=== PATIENT | female | born 1965 | race Two or more races ===

== ENCOUNTER 2021-08-07 10:29 | Emergency (ER) | payer MEDICARE ==
[~2021-08-07] VITALS: Ht 160 cm; Wt 168.0 kg
[2021-08-07 10:38] VITALS: BP 174/80
[2021-08-07] MEDS ORDERED: NAPR-514 PO (10:44)
[2021-08-07] MEDS ORDERED: HYDR-2145 PO (10:44)
[2021-08-07] MEDS ORDERED: ATOR20TA58 PO (10:44)
[2021-08-07] MEDS ORDERED: LIDOCAINE (700MG/PATCH) PATCH. TD ONE (11:15)
[2021-08-07] MEDS ORDERED: KETOROLAC 30 MG/ML VIAL. IM ONE (11:15)
[2021-08-07] MEDS ORDERED: ORPHENADRINE CITRATE 60 MG/2 ML VIAL. IM ONE (11:15)
[2021-08-07] MEDS ORDERED: ORPH100T PO (11:34)
--- NOTE | 2021-08-07 11:34 | PHYS DOC ---
Past Medical History Additional Past Medical Histor: edema; obesity; Past Surgical History: Smoking Status: Current Every Day Smoker Alcohol Use: Rarely General Adult EDM: Chief Complaint: BACK PAIN OR INJURY HPI: HPI: Patient is a 56 year old female who presents with 5-day history of low back pain. Patient states that she did not have any inciting event or other injury. She reports her pain is mostly on the left side low back, radiating to mid leg on the left side. Pain is exacerbated with the movement from a sitting position to standing. Patient reports she has been told in the past that she may have sciatica. She sees primary care with [facility], who have prescribed naproxen for her pain. Patient denies bowel or bladder incontinence, focal weakness, difficulty ambulating. Review of Systems: Review of Systems: ROS negative or noncontributory except as mentioned in HPI. Heart Score: C/O Chest Pain: No Current Medications: Current Medications Medications (Trade) Dose Ordered Sig/Kelly Start Time Stop Time Status Last Admin Dose Admin Ketorolac Tromethamine (Toradol 30mg Vial) 30 mg 1X ONCE 08/07/21 11:15 08/07/21 11:25 DC Lidocaine (Lidoderm) 1 patch 1X ONCE 08/07/21 11:15 08/07/21 11:25 DC Orphenadrine Citrate (Norflex) 60 mg 1X ONCE 08/07/21 11:15 08/07/21 11:25 DC Allergies: Allergies: Allergies Coded Allergies Type Severity Reaction Last Updated Verified No Known Drug Allergies 08/07/21 No Physical Exam: PE: Constitutional: Morbidly obese, no acute distress, non-toxic appearance. HENT: Normocephalic, atraumatic, bilateral external ears normal. Eyes: EOMI, conjunctiva normal, no discharge. Neck: Normal range of motion, no stridor. Skin: Warm, dry, no erythema, no rash. Back: No step-off, no midline tenderness, no paraspinal muscle spasm appreciated, though limited by significant adipose tissue. Extremities: No tenderness, no cyanosis, no clubbing, ROM intact. Neurologic: Alert and oriented x4, normal motor function, normal sensory function, no focal deficits noted. Current Patient Data: Vital Signs: Vital Signs Date Time Temp Pulse Resp B/P (MAP) Pulse Ox O2 Delivery O2 Flow Rate FiO2 08/07/21 10:38 98.3 66 20 174/80 (111) 98 Room Air 98.3 Course & Med Decision Making: Course & Med Decision Making Pertinent Labs and Imaging studies reviewed. (See chart for details) On reevaluation, patient states her pain is improved after administration of Toradol and Norflex and lidocaine patch. Patient was advised to follow-up with primary care or pain management regarding any persistent or chronic pain. Return precautions were provided. Patient understands and is agreeable to discharge plan. Dragon Disclaimer: Dragon Disclaimer: This electronic medical record was generated, in whole or in part, using a voice recognition dictation system. Departure Departure Impression: Primary Impression: Low back pain Qualified Codes: M54.42 - Lumbago with sciatica, left side Disposition: HOME / SELF CARE / HOMELESS Condition: IMPROVED Referrals: UNKNOWN PCP NAME (PCP) ARABELLA TOMPKINS MD Patient Instructions: Back Pain, Adult, [id number] Additional Instructions: EMERGENCY DEPARTMENT GENERAL DISCHARGE INSTRUCTIONS Thank you for coming to [facility] (ED) today and trusting us with you care. We trust that you had a positive experience in our Emergency Department. If you wish to speak to the department management, you may call the director at . YOUR FOLLOW UP INSTRUCTIONS ARE FOLLOWS: 1. Follow up with your primary care doctor. If you do not have a primary doctor, please ask for a resource list of physicians or clinics that may be able to assist you with follow up care. 2. The emergency provider has interpreted your imaging studies, if any were ordered. The radiology ventilator specialist also reviewed them. If there is a change in the findings, you will be notified in 48 hours when at all possible. 3. If a lab test or culture has been done, your results will be reviewed and you will be notified if you need a change in treatment. 4. Follow instructions verbalized to you and refer to the printouts if needed. ADDITIONAL INSTRUCTIONS AND INFORMATION: 1. Your care today has been supervised by a physician who is specially trained in emergency care. Many problems require more than one evaluation for a complete diagnosis and treatment. We recommend that you schedule your follow up appointment as recommended to ensure complete treatment of you illness or injury. If you are unable to obtain follow up care and continue to have a problem, or if your condition worsens, we recommend that you return to the ED. 2. We are not able to safely determine your condition over the phone nor are we able to give sound medical advice over the phone. For these safety reasons, if you call for medical advice we will ask you to come to the ED for further evaluation. 3. If you have any questions regarding these discharge instructions please call the ED at . SAFETY INFORMATION: In the interest of safety, wellness, and injury prevention; we encourage you to wear your seat belt, if you smoke; quite smoking, and we encourage family to use a protective helmet for bicycling and other sporting events that present an increased risk for head injury. IF YOUR SYMPTOMS WORSEN OR NEW SYMPTOMS DEVELOP, OR YOU HAVE CONCERNS ABOUT YOUR CONDITION; OR IF YOUR CONDITION WORSENS WHILE YOU ARE WAITING FOR YOUR FOLLOW UP APPOINTMENT; EITHER CONTACT YOUR PRIMARY CARE DOCTOR, THE PHYSICIAN WHOSE NAME AND NUMBER YOU WERE GIVEN, OR RETURN TO THE ED IMMEDIATELY. Scripts Orphenadrine Citrate (ORPHENADRINE CITRATE) 100 Mg Tablet.er 1 TAB PO BID, #20 TAB 0 Refills Prov: LOUIS DANG 08/07/21 LOUIS DANG August 07, 2021 11:34
== END 2021-08-07 11:49 | disposition home or self-care (01) ==
LOC: ER 10:29
DX: M54.42 Lumbago with sciatica, left side (principal); F17.200 Nicotine dependence, unspecified, uncomplicated
CPT/HCPCS: 96372; 99284; J1885; J2360